=== PATIENT | female | born 2000 | race Caucasian/White ===

== ENCOUNTER 2022-06-03 11:55 | Emergency (ER) | payer BC, SELFPAY ==
[2022-06-03 12:00] VITALS: BP 128/87; PULSE 80; RESP 18; TEMP 36.6; O2SAT 98; BMI 36.6
--- NOTE | 2022-06-03 12:12 | ED.GENADULT ---
HPI - General Adult General Chief complaint: Extremity Pain/Injury, Lower Stated complaint: Hurt L knee on a trampoline Time Seen by Provider: 06/03/22 11:55 Source: patient and family Mode of arrival: ambulatory Limitations: no limitations History of Present Illness HPI narrative: 22-year-old female coming in today complaining of left-sided knee pain. Patient states she was jumping at a trampoline park yesterday and just when she has a getting ready to leave she landed awkwardly and felt a pop of the left knee. It has been hurting her ever since. Pain is located around the entire knee including the back of the knee. Trying to straighten the leg makes it worse nothing really makes it better. She is able to walk and walked into the ER today. Related Data Home Medications Medication Instructions Recorded Confirmed No Known Home Medications 06/03/22 06/03/22 Allergies Allergy/AdvReac Type Severity Reaction Status Date / Time No Known Allergies Allergy Unknown Unverified 09/28/21 15:53 Review of Systems Status of ROS: Reports: 10 or more systems reviewed and unremarkable except as noted in History and below [facility] Medical History History of recurrent urinary tract infection ?Z87.440 - Personal history of urinary (tract) infections (ICD-10) Family History (Updated 09/28/21 @ 15:53 by Fahad Cox) Other Factor V Leiden mutation Exam Narrative: Exam Narrative: Overweight, well-developed patient in no acute distress. Alert and oriented. Answers questions appropriately. Mood and affect are appropriate. Thoughts are goal oriented and rational. No tangential or magical thinking noted. Patient speaks in full sentences without needing to catch her breath. HEENT: Normocephalic atraumatic. Pupils are equally round reactive to light. Extraocular muscles are intact. Conjunctivae are moist without any icterus noted. Extremities: Bilateral lower extremities are without edema. Normal DP and PT pulses. Left knee has normal appearance. There is no joint effusion felt. She has full range of passive motion with flexion and extension. There is no valgus or varus laxity. Anterior and posterior drawer negative. There is no swelling or bruising noted. Knee exam is normal. Skin: Well perfused without any obvious rashes. Const: Vital Signs, click to edit/add: Vital Signs - 24 hr 06/03/22 12:00 Temperature 97.9 F Pulse Rate [Right Pulse Oximeter] 80 Respiratory Rate 18 Blood Pressure [Ri ght Upper Arm] 128/87 Pulse Oximetry 98 Oxygen Delivery Me thod Room Air Course Vital Signs Vital signs: Initial Vital Signs Temperature 97.9 F 06/03/22 12:00 Temperature Source Temporal Artery Scan 06/03/22 12:00 Pulse Rate 80 06/03/22 12:00 Respiratory Rate 18 06/03/22 12:00 Blood Pressure 128/87 06/03/22 12:00 Blood Pressure Mean 100 06/03/22 12:00 Blood Pressure Position Sitting 06/03/22 12:00 Pulse Oximetry 98 06/03/22 12:00 Oxygen Delivery Method Room Air 06/03/22 12:00 Vital Signs Temperature 97.9 F 06/03/22 12:00 Pulse Rate 80 06/03/22 12:00 Respiratory Rate 18 06/03/22 12:00 Blood Pressure 128/87 06/03/22 12:00 Pulse Oximetry 98 06/03/22 12:00 Oxygen Delivery Method Room Air 06/03/22 12:00 Temperature 97.9 F 06/03/22 12:00 Pulse Rate 80 06/03/22 12:00 Respiratory Rate 18 06/03/22 12:00 Blood Pressure 128/87 06/03/22 12:00 Pulse Oximetry 98 06/03/22 12:00 Oxygen Delivery Method Room Air 06/03/22 12:00 Medical Decision Making MDM Narrative Medical decision making narrative: 22-year-old female with knee pain after jumping on a trampoline. We discussed that she likely sprained the knee. I will see any evidence of more significant internal derangement such as a ligamentous tear or fracture. We discussed activity modification, NSAIDs, and reasons for follow-up. Patient and her mother were agreeable and had no other questions. Discharge Plan Discharge Clinical Impression: Knee sprain Patient Disposition: Home, Self-Care Condition: Stable Additional Instructions: Activity as tolerated. Okay to use ibuprofen as needed/as directed for discomfort. Follow-up as needed. Prescriptions: No Action No Known Home Medications Follow Up/Referrals: Tiffany Sanders PA-C [Primary Care Provider] - Stand Alone Forms: [employer] Info Instructions
== END 2022-06-03 12:29 | disposition home or self-care (01) ==
LOC: ED 12:25
PROVIDERS: Emergency Provider Family Medicine; PCP Physician Assistant Medical
DX: S83.92XA Sprain of unspecified site of left knee, initial encounter (principal); Y93.44 Activity, trampolining
CPT/HCPCS: 99283